=== PATIENT | male | born 1970 | race Caucasian/White ===

== ENCOUNTER 2016-12-24 05:41 | Day surgery (SDC) | payer SELFPAY ==
[~2016-12-24 05:41] MED LIST: BACTRIM DS TAB1 EAC2 PO; HYDROCODON-ACE1 EA16 PO; NORCO 5-325 TA1 EACH PO; SILVADENE20 G1 TOP; SULFAMYLON50 GM TOP; SULFAMYLON60 GM EXT; SULFAMYLON60 GM TOP; SYMBICORT INH; ULTRAM50 M1 PO
[2016-12-25] MEDS ORDERED: COZAAR50 M1 PO (09:23)
[2016-12-25] MEDS ORDERED: NYSTOP60 GM TOP (09:59)
[2016-12-25] MEDS ORDERED: BACITRACIN1 G1 TOP (10:00)
--- NOTE | 2016-12-25 12:10 | NUR ---
REVIEW CHARTING OF [email or web address].MP
== END 2016-12-25 14:10 ==
LOC: SRG 05:41 → SHSB 05:43 → ORW 07:41 → PACU 09:03 → BURN 10:30
PROC: 0HRKX74 Replacement of Right Lower Leg Skin with Autologous Tissue Substitute, Partial Thickness, External Approach (ICD-10-PCS; principal; 2016-12-24)
DX: T24.001A Burn of unspecified degree of unspecified site of right lower limb, except ankle and foot, initial encounter (principal); T22.011A Burn of unspecified degree of right forearm, initial encounter; T31.0 Burns involving less than 10% of body surface; I10 Essential (primary) hypertension; E66.9 Obesity, unspecified; F41.9 Anxiety disorder, unspecified; F32.9 Major depressive disorder, single episode, unspecified; J45.909 Unspecified asthma, uncomplicated; Z79.2 Long term (current) use of antibiotics; Z79.899 Other long term (current) drug therapy; Z91.048 Other nonmedicinal substance allergy status; Z90.89 Acquired absence of other organs; Z98.890 Other specified postprocedural states
CPT/HCPCS: J0171; J1170; J1580; J2270; J3010; J3260; J3370